=== PATIENT | male | born 1945 | race Caucasian/White ===

== ENCOUNTER → 2017-10-22 09:36 | Outpatient (CLI) | payer MEDICARE, OTHER, SELFPAY ==
[2017-10-22 10:47] LABS: Add Manual Diff / Slide Review NO; Basophils Percent Auto 0.7 % (0-2); Eosinophils Percent Auto 3.3 % (2-4); Hematocrit 40.7 % (41-53); Hemoglobin 13.9 g/dL (13.5-17.5); Lymphocytes Percent Auto 22.8 % (25-40); Mean Corpuscular HGB Conc 34.2 % (30-36); Mean Corpuscular Hemoglobin 29.5 PG (26-34); Mean Corpuscular Volume 86.5 fL (80-100); Monocytes Percent Auto 13.4 % (3-14); Neutrophils Absolute Auto 4200 /uL (3000-5900); Neutrophils Percent Auto 59.8 % (50-75); Platelet Count 198 X10^3/uL (150-400); Red Cell Distribution Width 13.6 % (11.6-14.8)
[2017-10-22 11:39] LABS: Alanine Aminotransferase 28 IU/L (21-72); Albumin 4.1 g/dL (3.5-5.0); Albumin Globulin Ratio 1.5 (1.0-2.8); Alkaline Phosphatase 68 U/L (38-126); Aspartate Aminotransferase 17 IU/L (17-59); Bilirubin Total 0.5 mg/dL (0.2-1.3); Blood Urea Nitrogen 20 mg/dL (9-20); Calcium 9.4 mg/dL (8.4-10.2); Carbon Dioxide 31 mmol/L (22-32); Chloride 100 mmol/L (98-107); Cholesterol 161 mg/dL (140-199); Estimated Glomerular Filt Rate > 60.0 mL/min (>60); Globulin 2.7 g/dL (1.7-4.1); Glucose 103 mg/dL (80-110); HDL Cholesterol 60 mg/dL (40-60); HEMOLYSIS < 15 (0-50); LDL Cholesterol Calculated 85 mg/dL (<100); Potassium 4.4 mmol/L (3.4-5.1); Sodium 139 mmol/L (137-145); Total Protein 6.8 g/dL (6.3-8.2); Triglycerides 82 mg/dL (35-150)
== END ==
PROVIDERS: Family Provider Family Medicine; PCP Family Medicine; Visit Provider Family Medicine
DX: I10 Essential (primary) hypertension (principal); E78.2 Mixed hyperlipidemia; R97.20 Elevated prostate specific antigen [PSA]
CPT/HCPCS: 36415; 80053; 80061; 84153; 85025

== ENCOUNTER → 2019-04-19 09:46 | Outpatient (CLI) | payer MEDICARE, OTHER, SELFPAY ==
[2019-04-19 10:49] LABS: Add Manual Diff / Slide Review NO; Basophils Absolute Auto 0 /uL (0-100); Basophils Percent Auto 0.6 % (0-2); Eosinophils Absolute Auto 200 /uL (0-450); Eosinophils Percent Auto 2.5 % (2-4); Hematocrit 44.1 % (41-53); Hemoglobin 14.8 g/dL (13.5-17.5); Lymphocytes Absolute Auto 1400 /uL (1100-4500); Lymphocytes Percent Auto 19.7 % (25-40); Mean Corpuscular HGB Conc 33.6 % (30-36); Mean Corpuscular Hemoglobin 29.3 PG (26-34); Mean Corpuscular Volume 87.3 fL (80-100); Monocytes Absolute Auto 800 /uL (0-900); Monocytes Percent Auto 11.1 % (3-14); Neutrophils Absolute Auto 4800 /uL (1500-7000); Neutrophils Percent Auto 66.1 % (50-75); Platelet Count 206 X10^3/uL (150-400); Red Blood Cell Count 5.05 X10^6/uL (4.5-5.9); White Blood Cell Count 7.3 X10^3/uL (4.5-11.0)
[2019-04-19 11:02] LABS: Alanine Aminotransferase 21 IU/L (<50); Albumin 4.4 g/dL (3.5-5.0); Albumin Globulin Ratio 1.3 (1.0-2.8); Alkaline Phosphatase 78 U/L (38-126); Aspartate Aminotransferase 21 IU/L (17-59); BUN Creatinine Ratio 26.3 (6-22); Bilirubin Total 0.7 mg/dL (0.2-1.3); Blood Urea Nitrogen 21 mg/dL (9-20); Calcium 9.8 mg/dL (8.4-10.2); Carbon Dioxide 29 mmol/L (22-32); Chloride 98 mmol/L (98-107); Cholesterol 192 mg/dL (140-199); Estimated Glomerular Filt Rate > 60.0 mL/min (>60); Globulin 3.3 g/dL (1.7-4.1); Glucose 107 mg/dL (80-110); HDL Cholesterol 63 mg/dL (40-60); HEMOLYSIS < 15 (0-50); LDL Cholesterol Calculated 101 mg/dL (<100); Potassium 4.8 mmol/L (3.4-5.1); Sodium 136 mmol/L (137-145); Total Protein 7.7 g/dL (6.3-8.2); Triglycerides 142 mg/dL (35-150)
[2019-04-21 16:54] LABS: PSA Free % 14 % (calc) (> 25); PSA, Total 21.4 ng/mL (< 4.1)
== END ==
PROVIDERS: PCP Family Medicine; Visit Provider Family Medicine
DX: R97.20 Elevated prostate specific antigen [PSA] (principal); E78.00 Pure hypercholesterolemia, unspecified; I10 Essential (primary) hypertension
CPT/HCPCS: 36415; 80053; 80061; 84153; 84154; 85025

== ENCOUNTER → 2019-12-27 09:54 | Outpatient (CLI) | payer MEDICARE, OTHER, SELFPAY ==
[2019-12-27 10:59] LABS: Appearance Urine UA CLOUDY; Bilirubin Urine UA NEGATIVE (NEGATIVE); Color Urine UA YELLOW; Glucose Urine UA NEGATIVE (Negative); Ketones Urine UA NEGATIVE (NEGATIVE); Leukocyte Esterase Urine UA 2+ (NEGATIVE); Nitrite Urine UA NEGATIVE (Negative); Occult Blood Urine UA 2+ (Negative); Protein Urine UA 2+ (Negative); Specific Gravity Urine UA 1.015 (1.000-1.035); Urobilinogen Urine UA 0.2 E.U./dL (0.2); pH Urine UA 6.5 (4.5-8.0)
[2019-12-27 11:14] LABS: RBC Urine 5-10/HPF (0-5/HPF); WBC Urine 10-30/HPF (0-5/HPF)
[2019-12-27 11:15] LABS: Bacteria Urine Moderate (10-30); Culture Indicated Urine Specimen Cultured
== END ==
PROVIDERS: PCP Family Medicine; Referring Provider Urology; Visit Provider Urology
DX: R39.9 Unspecified symptoms and signs involving the genitourinary system (principal)
CPT/HCPCS: 81001; 87077; 87086

== ENCOUNTER 2020-01-01 21:38 | Emergency (ER) | payer MEDICARE, OTHER, SELFPAY ==
[2020-01-01 21:51] VITALS: BP 200/104; PULSE 88; RESP 18; TEMP 36.7; O2SAT 99
--- NOTE | 2020-01-01 21:59 | ED.GENADULT ---
HPI - General Adult General Chief complaint: Urogenital-Male Stated complaint: stomach pains, recent UTI Time Seen by Provider: 01/01/20 21:40 Source: patient Mode of arrival: Ambulatory Limitations: no limitations History of Present Illness HPI narrative: Patient is a 74-year-old male. Has known BPH. Is followed by the urologist. Approximately 1 week ago was diagnosed with the urinary tract infection by primary provider. Is placed on Cipro. Has taken this as directed and has 3 tablets left of this antibiotic. He states that the burning that he was having that led to the investigation of a potential urinary tract infection has resolved. He states that over the past 24 hours he has noticed a decreased in the amount of urine that he has been able to produce. He states that he has not been able to empty his bladder over the past 24 hours and really over the past several hours has had urinary urgency and hesitancy and a very small amount of urine output. He is complaining of lower abdominal distention and pain. No vomiting. No fevers. Has never had urinary retention requiring a catheter in the past. Related Data Previous Rx's Medication Instructions Recorded lisinopril-hydrochlorothiazide 1 tab PO QDAY #90 tab 05/21/17 simvastatin 20 mg PO HS #90 tab 05/21/17 cyclobenzaprine 10 mg PO HS #90 tab 07/07/17 hydrocodone 5 mg-acetaminophen 325 1 tab PO .COMPLEX PRN #90 tab 18 mg tablet oxycodone 10 mg tablet,crush 10 mg PO .COMPLEX #90 tab 12/03/17 resistant,extended release 12 hr hydrocodone 5 mg-acetaminophen 325 1 tab PO .COMPLEX PRN #90 tab 12/04/17 mg tablet hydrocodone 5 mg-acetaminophen 325 1 tab PO .COMPLEX PRN #90 tab 12/04/17 mg tablet oxycodone 10 mg tablet,crush 10 mg PO .COMPLEX #90 tab 12/04/17 resistant,extended release 12 hr oxycodone 10 mg tablet,crush 10 mg PO .COMPLEX #90 tab 12/04/17 resistant,extended release 12 hr ciprofloxacin HCl 500 mg tablet 500 mg PO BID 7 Days #14 tab 12/28/19 Allergies Allergy/AdvReac Type Severity Reaction Status Date / Time No Known Drug Allergies Allergy Verified 12/28/19 11:21 Review of Systems Constitutional Constitutional: Denies fatigue and Denies fever(s) Cardiovascular Cardiovascular: Denies chest pain and Denies dyspnea Respiratory Respiratory: Denies dyspnea Gastrointestinal Gastrointestinal: Reports abdominal pain, Denies change in bowel habits, Denies nausea and Denies vomiting Genitourinary Genitourinary: Denies hematuria, Reports oliguria, Reports difficulty urinating, Denies dysuria, Reports urinary frequency, Reports urinary hesitancy, Denies urinary incontinence and Reports urinary urgency Genitourinary: Denies hematuria, Reports urinary frequency, Denies dysuria, Denies urinary incontinence, Reports urinary hesitancy and Reports urinary urgency Musculoskeletal Musculoskeletal: Denies arthralgias and Denies myalgias Integumentary/Breasts Skin/Breast: Denies rash Neurologic Neurologic: Denies behavioral changes and Denies confusion Psychiatric Psychiatric: Denies behavioral changes and Denies confusion Endocrine Endocrine: Denies fatigue Hematologic/Lymphatic Hematologic/Lymphatic: Denies easy bleeding and Denies easy bruising Allergic/Immunologic Allergic/Immunologic: Denies urticaria Patient History Medical History Benign prostatic hyperplasia with lower urinary tract symptoms (11/26/16) Chronic back pain (Chronic 1965) Chronic bilateral low back pain with sciatica (Chronic 09/06/15) Chronic pain of both knees (09/06/15) Chronic pain syndrome (09/06/15) Colon polyps (Resolved 2014) Degeneration of intervertebral disc at L5-S1 level (09/06/15) Elevated prostate specific antigen (PSA) (09/02/16) Elevated PSA (Chronic Unknown) Essential hypertension (04/12/15) Foot pain (Resolved 2014) History of scoliosis (09/06/15) Hyperlipemia (Chronic Unknown) Hypertension (Chronic 1999) Left knee pain (04/12/15) Lumbar disc disease (Chronic ~1959) Midline low back pain without sciatica (04/12/15) Mixed hyperlipidemia (04/12/15) Primary insomnia (04/12/15) Right foot pain (06/22/15) Right knee pain (04/12/15) Uncomplicated opioid dependence (Chronic 09/02/16) Surgical History History of knee replacement (2006) History of knee replacement (2012) History of partial colectomy (Resolved 1980) Status post appendectomy (1980) Family History Father No problems noted. Mother No problems noted. Social History Smoking Status: Former smoker Smoking Status: Former smoker Exam Initial Vital Signs Initial Vital Signs: Vital Signs Temperature 98.1 F 01/01/20 21:51 Pulse Rate 88 01/01/20 21:51 Respiratory Rate 18 01/01/20 21:51 Blood Pressure 200/104 H 01/01/20 21:51 Pulse Oximetry 99 01/01/20 21:51 Const General: cooperative Limitations: mental status not altered HENMT Head: normal to inspection and normocephalic Resp Effort & Inspection: normal respiratory effort Cardio Rate: regular rate GI Inspection: distended Skin Lesions: no lesions Rashes: no rashes Neuro General: patient alert and patient awake Cognition: normal cognition Speech: speech normal Gait: normal gait Extrem General: normal to inspection Psych Appearance: grossly normal and well kempt Course Orders Ordered: ED Orders 01/01/20 22:09 Urinalysis and Microscopic Stat Urine Culture Stat Discontinued Medications Lidocaine HCl (Urojet) 5 ml TOP NOW ONE Stop: 01/01/20 22:12 Last Admin: 01/01/20 22:12 Dose: 5 ml Documented by: SELENE Vital Signs Vital signs: Vital Signs - 8 hr 01/01/20 21:51 Temperature 98.1 F Pulse Rate 88 Respiratory Rate 18 Blood Pressure 200/104 H Pulse Oximetry 99 Medical Decision Making Medical Records Medical records reviewed: Yes I reviewed the patient's medical records. Lab Data Lab results reviewed: Yes I reviewed the patient's lab results. Labs: Lab Results 01/01/20 Range/Units 22:09 Urine Color Yellow Urine Appearance Clear Urine pH 5.0 (4.5-8.0) Ur Specific [place] 1.015 (1.000-1.035) Urine Protein Negative (Negative) Urine Glucose (UA) Negative (Negative) g/dL Urine Ketones Negative (NEGATIVE) Urine Occult Blood Negative (Negative) Urine Nitrate Negative (Negative) Urine Bilirubin Negative (NEGATIVE) Urine Urobilinogen 0.2 (0.2) E.U./dL Ur Leukocyte Esterase Negative (NEGATIVE) Urine RBC None seen (0-5/HPF) Urine WBC 0-1/hpf (0-5/HPF) Urine Bacteria None seen (None) Ur Culture Indicated? Culture not indicate MDM Narrative Medical decision making narrative: Patient is currently being treated for urinary tract infection and has only a few pills left. His urinalysis today is not consistent with a UTI. Initial bladder scan showed 400 cc however when a Alatorre catheter was placed had a results of approximately 1300 cc of urine. Patient felt much better after this. I suspect that the urinary retention is secondary to his infection and also underlying prostate issues. Had a long discussion with the patient regarding the symptoms. We did discuss the options to include leaving the Alatorre catheter in of the risks and benefits this and also removing the Alatorre catheter and the risks and benefits of this as well. We did discuss that if remove the catheter there is a fairly high chance that he would retain urine again and that he would have to return to the emergency department to have another catheter placed. I did inform him that if the catheter was left in place he should contact his primary provider or urologist for a follow-up to have it removed. After this discussion the patient opted to have the catheter removed. He understood the risks and benefits of this and the potential outcomes. This discussion with had with his at bedside. Acute Alatorre catheter was removed. He was given return precautions and due to avoid instructions. Will have him continue his antibiotics. Informed him that he should contact his urologist tomorrow regardless of the ability or not to urinate for follow-up. He expressed understanding and agreement. Discharge Plan Departure Patient Disposition: Home Clinical Impression: Acute urinary retention, Urinary tract infection, BPH (benign prostatic hyperplasia) Instructions: DI for Urinary Retention in Men Activity Restrictions/Additional Instructions: After discussion you did opt to have the urinary catheter removed. You should be urinating at your baseline by morning like we discussed. If you start to have increasing pain or inability to urinate please return to the emergency department for further evaluation. I also recommend that tomorrow you contact your urologist office for a follow-up. Prescriptions: No Action ciprofloxacin HCl 500 mg tablet 500 mg PO BID 7 Days Qty: 14 RF: 0 hydrocodone-acetaminophen 5-325 mg tablet 1 tab PO .COMPLEX PRN (Reason: pain) Qty: 90 RF: 0 oxycodone [OxyContin] 10 mg tablet,oral only,ext.rel.12 hr 10 mg PO .COMPLEX Qty: 90 RF: 0 hydrocodone-acetaminophen 5-325 mg tablet 1 tab PO .COMPLEX PRN (Reason: pain) Qty: 90 RF: 0 hydrocodone-acetaminophen 5-325 mg tablet 1 tab PO .COMPLEX PRN (Reason: pain) Qty: 90 RF: 0 oxycodone [OxyContin] 10 mg tablet,oral only,ext.rel.12 hr 10 mg PO .COMPLEX Qty: 90 RF: 0 oxycodone [OxyContin] 10 mg tablet,oral only,ext.rel.12 hr 10 mg PO .COMPLEX Qty: 90 RF: 0 simvastatin 20 MG tablet 20 mg PO HS Qty: 90 RF: 3 lisinopril-hydrochlorothiazide 10 MG/12.5 MG tablet 1 tab PO QDAY Qty: 90 RF: 3 cyclobenzaprine 10 MG tablet 10 mg PO HS Qty: 90 RF: 3 Referrals: Luiz Kaur MD [Primary Care Provider] -
--- NOTE | 2020-01-01 22:00 | PC.NURSE ---
Patient reports diagnosed with UTI and started on ABX 3 days ago. Today had new abdominal pain and inability to urinate. States I can only get out a few drops. Denies N/V and reports improvement in UTI symptoms since starting ABX.
[2020-01-01] MEDS: LIDOCAINE 2% (UROJET) 5 ML GEL TOP (22:12)
[2020-01-01 22:35] LABS: Bacteria Urine None Seen; RBC Urine None Seen (0-5/HPF)
[2020-01-01 22:43] LABS: Appearance Urine UA CLEAR; Bilirubin Urine UA NEGATIVE (NEGATIVE); Color Urine UA YELLOW; Glucose Urine UA NEGATIVE (Negative); Ketones Urine UA NEGATIVE (NEGATIVE); Leukocyte Esterase Urine UA NEGATIVE (NEGATIVE); Nitrite Urine UA NEGATIVE (Negative); Occult Blood Urine UA NEGATIVE (Negative); Protein Urine UA NEGATIVE (Negative); Specific Gravity Urine UA 1.015 (1.000-1.035); Urobilinogen Urine UA 0.2 E.U./dL (0.2)
[2020-01-01 22:53] LABS: WBC Urine 0-1/HPF (0-5/HPF)
[2020-01-01 23:24] VITALS: BP 153/89; PULSE 83; RESP 18; O2SAT 98
== END 2020-01-01 23:25 | disposition home or self-care (01) ==
PROVIDERS: Emergency Provider Emergency Medicine; PCP Family Medicine
DX: N40.1 Benign prostatic hyperplasia with lower urinary tract symptoms (principal); R33.8 Other retention of urine; N39.0 Urinary tract infection, site not specified
CPT/HCPCS: 51701; 51798; 81001; 87086; 99283

== ENCOUNTER 2020-01-03 09:29 | Emergency (ER) | payer MEDICARE, OTHER, SELFPAY ==
[2020-01-03 09:42] VITALS: BP 188/91; PULSE 95; RESP 18; TEMP 35.7; O2SAT 97
[2020-01-03] MEDS: LIDOCAINE 2% (UROJET) 5 ML GEL TOP (09:52)
[2020-01-03 10:10] LABS: Bacteria Urine None Seen
[2020-01-03 10:11] LABS: Appearance Urine UA SL CLOUDY; Bilirubin Urine UA NEGATIVE (NEGATIVE); Color Urine UA YELLOW; Glucose Urine UA NEGATIVE (Negative); Ketones Urine UA NEGATIVE (NEGATIVE); Leukocyte Esterase Urine UA NEGATIVE (NEGATIVE); Nitrite Urine UA NEGATIVE (Negative); Occult Blood Urine UA 3+ (Negative); Protein Urine UA NEGATIVE (Negative); Urobilinogen Urine UA 0.2 E.U./dL (0.2); pH Urine UA 5.5 (4.5-8.0)
--- NOTE | 2020-01-03 10:27 | ED_ITS ---
HPI - Male Genitourinary General Chief complaint: Urogenital-Male Stated complaint: urinary thing Time Seen by Provider: 01/03/20 10:11 Source: patient Mode of arrival: Ambulatory Limitations: no limitations History of Present Illness HPI Narrative: The patient was seen 2 days ago with urinary retention. Alatorre was placed, his distention is relieved. He requests the Alatorre be removed prior to discharge. He initially did well leaving the ER, but developed dripping yesterday, and then loss of urine output this morning. He comes in lower abdominal discomfort and inability urinate. He has no nausea vomiting. He has no fever chills. His a prior history of BPH. His medications was not listed, but he iis apparently taking Alfuzosin for the past year. He was previously on Flomax, without benefit. He was seen 1 week ago and walk-in clinic and put on Cipro for a UTI. He has no testicular pain, and no dysuria at this time. He has no fever. Related Data Previous Rx's Medication Instructions Recorded lisinopril-hydrochlorothiazide 1 tab PO QDAY #90 tab 05/21/17 simvastatin 20 mg PO HS #90 tab 05/21/17 ciprofloxacin HCl [Cipro] 500 mg PO Q12H #28 tab 01/03/20 Allergies Allergy/AdvReac Type Severity Reaction Status Date / Time No Known Drug Allergies Allergy Verified 12/28/19 11:21 Review of Systems Constitutional Constitutional: Denies chills, Denies fever(s) and Denies weakness ENT Ears, Nose, Mouth, and Throat: Denies sore throat Cardiovascular Cardiovascular: Denies dyspnea Respiratory Respiratory: Denies cough and Denies dyspnea Gastrointestinal Comments: Suprapubic abdominal pain. No nausea vomiting. Genitourinary Comments: No genital pain. Musculoskeletal Comments: No back pain. Integumentary/Breasts Skin/Breast: Denies rash Neurologic Neurologic: Denies weakness Patient History Medical History Benign prostatic hyperplasia with lower urinary tract symptoms (11/26/16) Chronic back pain (Chronic 1964) Chronic bilateral low back pain with sciatica (Chronic 09/06/15) Chronic pain of both knees (09/06/15) Chronic pain syndrome (09/06/15) Colon polyps (Resolved 2014) Degeneration of intervertebral disc at L5-S1 level (09/06/15) Elevated prostate specific antigen (PSA) (09/02/16) Elevated PSA (Chronic Unknown) Essential hypertension (04/12/15) Foot pain (Resolved 2014) History of scoliosis (09/06/15) Hyperlipemia (Chronic Unknown) Hypertension (Chronic 1999) Left knee pain (04/12/15) Lumbar disc disease (Chronic ~1960) Midline low back pain without sciatica (04/12/15) Mixed hyperlipidemia (04/12/15) Primary insomnia (04/12/15) Right foot pain (06/22/15) Right knee pain (04/12/15) Uncomplicated opioid dependence (Chronic 09/02/16) Surgical History History of knee replacement (2006) History of knee replacement (2012) History of partial colectomy (Resolved 1980) Status post appendectomy (1980) Family History Father No problems noted. Mother No problems noted. Social History Smoking Status: Former smoker Smoking Status: Former smoker alcohol intake frequency: 0-2 drinks per day Substance Use Type: does not use Exam Initial Vital Signs Initial Vital Signs: Vital Signs Temperature 96.2 F L 01/03/20 09:42 Pulse Rate 95 H 01/03/20 09:42 Respiratory Rate 18 01/03/20 09:42 Blood Pressure 188/91 H 01/03/20 09:42 Pulse Oximetry 97 01/03/20 09:42 GI Inspection: non-distended Palpation: soft, No guarding, No pulsatile mass and No tender Auscultation: normal bowel sounds Other: (The Alatorre was placed prior to my physical exam.) Penis: normal penis Meatus: meatus normal Scrotum: scrotum normal Testes: normal Back/Spine/Pelvis Back: No CVA tenderness Skin General: no rashes or lesions noted Course Course Course Narrative: The patient eventually drain 1400 mL of urine out with the Alatorre in place. He has had for leg bag. I discussed the situation with Urology, Dr. Bowman. Dr. Bowman has agreed to see him within the coming week. Orders Ordered: Discontinued Medications Lidocaine HCl (Urojet) 5 ml TOP NOW ONE Stop: 01/03/20 09:44 Last Admin: 01/03/20 09:52 Dose: 5 ml Documented by: JACI Tamsulosin HCl (Flomax) 0.4 mg PO NOW ONE Stop: 01/03/20 10:31 Last Admin: 01/03/20 10:42 Dose: Not Given Documented by: JACI Vital Signs Vital signs: Vital Signs - 8 hr 01/03/20 09:42 Temperature 96.2 F L Pulse Rate 95 H Respiratory Rate 18 Blood Pressure 188/91 H Pulse Oximetry 97 MDM - Male Genitourinary Lab Data Labs: Lab Results 01/03/20 Range/Units 10:05 Urine Color Yellow Urine Appearance Sl cloudy Urine pH 5.5 (4.5-8.0) Ur Specific [place] 1.020 (1.000-1.035) Urine Protein Negative (Negative) Urine Glucose (UA) Negative (Negative) g/dL Urine Ketones Negative (NEGATIVE) Urine Occult Blood 3+ H (Negative) Urine Nitrate Negative (Negative) Urine Bilirubin Negative (NEGATIVE) Urine Urobilinogen 0.2 (0.2) E.U./dL Ur Leukocyte Esterase Negative (NEGATIVE) Urine RBC 30-100/hpf H (0-5/HPF) Urine WBC 0-1/hpf (0-5/HPF) Urine Bacteria None seen (None) Ur Culture Indicated? Cult not indicated Discharge Plan Departure Patient Disposition: Home Clinical Impression: Acute urinary retention, Acute prostatitis Benign prostatic hyperplasia Qualifiers: Lower urinary tract symptom presence: symptoms present Lower urinary tract symptom detail: urinary retention Qualified Code(s): N40.1 - Benign prostatic hyperplasia with lower urinary tract symptoms Discharge Date/Time: 01/03/20 11:55 Instructions: DI for Urinary Retention in Men Activity Restrictions/Additional Instructions: Continue your prostate medication,Alfuzosib. Continue Cipro 2 times daily for 2 weeks. The prescription has been electronically forwarded to [facility]. Drink plenty of water. Follow-up with urology, I will give you contact information for Dr. Bowman. Call for an appointment. The Alatorre should stay in until seen by Urology. Return to the ER as needed. Prescriptions: New ciprofloxacin HCl [Cipro] 500 mg tablet 500 mg PO Q12H Qty: 28 RF: 0 No Action simvastatin 20 MG tablet 20 mg PO HS Qty: 90 RF: 3 lisinopril-hydrochlorothiazide 10 MG/12.5 MG tablet 1 tab PO QDAY Qty: 90 RF: 3 Referrals: Andreas Bowman MD [Physician] - Luiz Kaur MD [Primary Care Provider] -
[2020-01-03 11:04] LABS: RBC Urine 30-100/HPF (0-5/HPF)
[2020-01-03 11:05] LABS: Culture Indicated Urine Cult Not Indicated; WBC Urine 0-1/HPF (0-5/HPF)
--- NOTE | 2020-01-03 11:32 | PC.NURSE ---
patient switched to leg bag for dispo and educated on care and maintenance at home
[2020-01-03 11:36] VITALS: BP 150/84; PULSE 82; RESP 18; O2SAT 96
[2020-01-03 11:54] VITALS: BP 141/77; PULSE 78; RESP 16; O2SAT 98
== END 2020-01-03 11:55 | disposition home or self-care (01) ==
PROVIDERS: Emergency Provider Emergency Medicine; PCP Family Medicine
DX: N41.0 Acute prostatitis (principal)
CPT/HCPCS: 51798; 81001; 99283

== ENCOUNTER 2020-01-26 23:47 | Emergency (ER) | payer MEDICARE, OTHER, SELFPAY ==
[2020-01-26 23:54] VITALS: BP 205/104; PULSE 92; RESP 16; TEMP 36.4; O2SAT 98; BMI 27.7
--- NOTE | 2020-01-26 23:59 | ED_ITS ---
HPI - Male Genitourinary General Chief complaint: Urogenital-Male Stated complaint: had catheter out, system isn't working Time Seen by Provider: 01/26/20 23:48 Source: patient Mode of arrival: Ambulatory Limitations: no limitations History of Present Illness HPI Narrative: 74-year-old male former smoker with history of enlarged prostate and recent episode of urinary retention with Alatorre catheter placement returns to the emergency department with an inability urinate and a chief complaint of suprapubic tenderness. He is not dizzy nor weak or lightheaded. He denies any chest pain or shortness of breath. He has had no fever or chills. He states that he was at his urologist office today and had a catheter removed and has since been unable to urinate. MD Complaint: other Onset (ago): hour(s) Duration: constant Severity: moderate Quality: aching Relieving factors: none Exacerbating factors: none Associated symptoms: Reports denies other symptoms Related Data Home Medications Medication Instructions Recorded Confirmed aspirin 81 mg tablet,delayed 81 mg PO DAILY 01/26/20 01/26/20 release oxycodone 10 mg tablet 10 mg PO BID PRN 01/26/20 01/26/20 Previous Rx's Medication Instructions Recorded lisinopril-hydrochlorothiazide 1 tab PO QDAY #90 tab 05/21/17 simvastatin 20 mg PO HS #90 tab 05/21/17 ciprofloxacin HCl [Cipro] 500 mg PO Q12H #28 tab 01/03/20 ciprofloxacin HCl 250 mg tablet 250 mg PO BID #6 tab 01/04/20 tamsulosin 0.4 mg capsule 0.4 mg PO .B.i.d. #180 cap 01/26/20 Allergies Allergy/AdvReac Type Severity Reaction Status Date / Time No Known Drug Allergies Allergy Verified 01/26/20 10:55 Review of Systems Constitutional Constitutional: Denies chills, Denies fatigue, Denies fever(s), Denies frequent falls, Denies lethargy and Denies weakness Eyes Eyes: Denies change in vision, Denies eye discharge, Denies irritation and Denies loss of vision ENT Ears, Nose, Mouth, and Throat: Denies change in voice, Denies dizziness, Denies neck pain, Denies sore throat and Denies throat swelling Cardiovascular Cardiovascular: Denies chest pain, Denies irregular heart rhythm, Denies lightheadedness, Denies palpitations, Denies dyspnea, Denies dyspnea on exertion and Denies orthopnea Respiratory Respiratory: Denies cough, Denies dyspnea, Denies dyspnea on exertion and Denies wheezing Gastrointestinal Gastrointestinal: Reports abdominal pain, Denies change in bowel habits, Denies diarrhea, Denies nausea and Denies vomiting Genitourinary Genitourinary: Reports urinary frequency Genitourinary: Reports urinary frequency and Reports difficulty voiding Musculoskeletal Musculoskeletal: Denies neck pain and Denies numbness Integumentary/Breasts Skin/Breast: Denies pruritus, Denies erythema, Denies rash and Denies wounds Neurologic Neurologic: Denies behavioral changes, Denies confusion, Denies dizziness, Denies frequent falls, Denies loss of vision, Denies numbness and Denies weakness Psychiatric Psychiatric: Denies anxiety, Denies behavioral changes, Denies confusion, Denies depression, Denies homicidal ideation and Denies suicidal ideation Endocrine Endocrine: Denies fatigue, Denies flushing and Denies palpitations Hematologic/Lymphatic Hematologic/Lymphatic: Denies easy bruising Allergic/Immunologic Allergic/Immunologic: Denies urticaria, Denies throat swelling and Denies wheezing Patient History Medical History Benign prostatic hyperplasia with lower urinary tract symptoms (11/26/16) BPH w urinary obs/LUTS (Acute) Chronic back pain (Chronic 1964) Chronic bilateral low back pain with sciatica (Chronic 09/06/15) Chronic pain of both knees (09/06/15) Chronic pain syndrome (09/06/15) Colon polyps (Resolved 2014) Degeneration of intervertebral disc at L5-S1 level (09/06/15) Elevated prostate specific antigen (PSA) (09/02/16) Elevated PSA (Chronic Unknown) Elevated PSA (Acute) Erectile dysfunction (Acute) Essential hypertension (04/12/15) Foot pain (Resolved 2014) History of scoliosis (09/06/15) History of UTI (Acute) Hyperlipemia (Chronic Unknown) Hypertension (Chronic 1999) Left knee pain (04/12/15) Lumbar disc disease (Chronic ~1960) Midline low back pain without sciatica (04/12/15) Mixed hyperlipidemia (04/12/15) Primary insomnia (04/12/15) Right foot pain (06/22/15) Right knee pain (04/12/15) Uncomplicated opioid dependence (Chronic 09/02/16) Urinary retention (Acute) Surgical History History of knee replacement (2006) History of knee replacement (2012) History of partial colectomy (Resolved 1980) Status post appendectomy (1980) Family History Father No problems noted. Mother No problems noted. Social History Smoking Status: Former smoker Smoking Status: Former smoker alcohol intake frequency: 0-2 drinks per day Substance Use Type: does not use Exam Narrative Exam Narrative: GEN: AOx3 and in mild distress EYES: Pupils are equal, round, and reactive to light and accommodation. Extraoccular muscles are intact bilaterally. There is no subconjunctival hemorrhage or exudate. CHEST: Lungs are clear to auscultation bilaterally and free of wheezes, rales, or rhonchi. Heart rate is regular rhythm, there are no murmurs, clicks, rubs, or gallops. There is no chest wall tenderness. ABD: Abdomen is soft and tender in the suprapubic region. There is no guarding or rebound. Bowel sounds are normal in all 4 quadrants. There is no mass or organomegaly. EXT: Full painless ROM of all extremities with no loss of sensation or strength. SKIN: Warm, pink, and dry. No erythema or rash Initial Vital Signs Initial Vital Signs: Vital Signs Temperature 97.6 F 01/26/20 23:54 Pulse Rate 92 H 01/26/20 23:54 Respiratory Rate 16 01/26/20 23:54 Blood Pressure 205/104 H 01/26/20 23:54 Pulse Oximetry 98 01/26/20 23:54 Course Course Course Narrative: nursing performs bladder scan noting >500mL. Alatorre placed and patient reports complete resolution of symptoms Orders Ordered: ED Orders 01/27/20 00:22 Urinalysis and Microscopic Stat Discontinued Medications Lidocaine HCl (Urojet) 5 ml TOP NOW ONE Stop: 01/26/20 23:55 Last Admin: 01/27/20 00:04 Dose: 5 ml Documented by: JACI Vital Signs Vital signs: Vital Signs - 8 hr 01/26/20 23:54 01/27/20 01:20 Temperature 97.6 F Pulse Rate 92 H 80 Respiratory Rate 16 12 Blood Pressure 205/104 H 159/77 H Pulse Oximetry 98 98 MDM - Male Genitourinary Lab Data Labs: Lab Results 01/27/20 Range/Units 00:22 Urine Color Yellow Urine Appearance Clear Urine pH 5.0 (4.5-8.0) Ur Specific [place] 1.015 (1.000-1.035) Urine Protein Negative (Negative) Urine Glucose (UA) Negative (Negative) g/dL Urine Ketones Negative (NEGATIVE) Urine Occult Blood 1+ H (Negative) Urine Nitrate Negative (Negative) Urine Bilirubin Negative (NEGATIVE) Urine Urobilinogen 0.2 (0.2) E.U./dL Ur Leukocyte Esterase Negative (NEGATIVE) Urine RBC 0-1/hpf D (0-5/HPF) Urine WBC None seen (0-5/HPF) Urine Bacteria None seen (None) Ur Culture Indicated? Cult not indicated Discharge Plan Departure Patient Disposition: Home Clinical Impression: Acute retention of urine Discharge Date/Time: 01/27/20 01:20 Instructions: DI for Urinary Retention in Men Activity Restrictions/Additional Instructions: *You have been diagnosed with [acute urinary retention] *What to do: * continue to take medications as directed *Follow up with your Urologist, call tomorrow morening for an appointment. Let them know you were seen in the Emergency Department and that we ask that you be seen in follow up *Return to ER if you should have any new, worsening or concerning symptoms Prescriptions: No Action simvastatin 20 MG tablet 20 mg PO HS Qty: 90 RF: 3 lisinopril-hydrochlorothiazide 10 MG/12.5 MG tablet 1 tab PO QDAY Qty: 90 RF: 3 ciprofloxacin HCl [Cipro] 250 mg tablet 250 mg PO BID Qty: 6 RF: 0 ciprofloxacin HCl [Cipro] 500 mg tablet 500 mg PO Q12H Qty: 28 RF: 0 aspirin [Adult Aspirin Regimen] 81 mg tablet,delayed release (DR/EC) 81 mg PO DAILY RF: 0 oxycodone 10 mg tablet 10 mg PO BID PRNRF: 0 tamsulosin 0.4 mg capsule 0.4 mg PO .B.i.d. Qty: 180 RF: 3 Referrals: Andreas Bowman MD [Physician] - Luiz Kaur MD [Primary Care Provider] -
[2020-01-27] MEDS: LIDOCAINE 2% (UROJET) 5 ML GEL TOP (00:04)
--- NOTE | 2020-01-27 00:05 | PC.NURSE ---
had trevizo removed around 11am, unable to empty bladder since.
[2020-01-27 00:23] LABS: Bacteria Urine None Seen; WBC Urine None Seen (0-5/HPF)
[2020-01-27 00:46] LABS: Appearance Urine UA CLEAR; Bilirubin Urine UA NEGATIVE (NEGATIVE); Color Urine UA YELLOW; Glucose Urine UA NEGATIVE (Negative); Ketones Urine UA NEGATIVE (NEGATIVE); Leukocyte Esterase Urine UA NEGATIVE (NEGATIVE); Nitrite Urine UA NEGATIVE (Negative); Occult Blood Urine UA 1+ (Negative); Protein Urine UA NEGATIVE (Negative); Specific Gravity Urine UA 1.015 (1.000-1.035); Urobilinogen Urine UA 0.2 E.U./dL (0.2)
[2020-01-27 01:07] LABS: RBC Urine 0-1/HPF (0-5/HPF)
[2020-01-27 01:08] LABS: Culture Indicated Urine Cult Not Indicated
[2020-01-27 01:20] VITALS: BP 159/77; PULSE 80; RESP 12; O2SAT 98
== END 2020-01-27 01:20 | disposition home or self-care (01) ==
PROVIDERS: Emergency Provider Emergency Medicine; PCP Family Medicine
DX: N40.1 Benign prostatic hyperplasia with lower urinary tract symptoms (principal); R33.8 Other retention of urine; R10.9 Unspecified abdominal pain; N13.8 Other obstructive and reflux uropathy; R97.20 Elevated prostate specific antigen [PSA]; N52.9 Male erectile dysfunction, unspecified; Z87.440 Personal history of urinary (tract) infections
CPT/HCPCS: 51798; 81001; 99215; 99283

== ENCOUNTER 2020-02-10 01:52 | Emergency (ER) | payer MEDICARE, OTHER, SELFPAY ==
--- NOTE | 2020-02-10 01:55 | ED.MALEGU ---
HPI - Male Genitourinary General Chief complaint: Urogenital-Male Stated complaint: problems urinating Time Seen by Provider: 02/10/20 01:55 Source: patient Mode of arrival: Ambulatory Limitations: no limitations History of Present Illness HPI Narrative: 74-year-old male with history of hypertension, hyperlipidemia, enlarged prostate and recent bouts of urinary retention presents with a chief complaint of inability to urinate and suprapubic tenderness. He had been recently seen here in the ED and had a trevizo catheter placed. He had close follow up with local urology ([facility]) and 2 days ago had his catheter removed and plan to self cath until what sounds like a cystoscopy in April. Patient was unsuccessful cathing at home and presents here for help. He has had no fever or chills nor back pain. He did have a small amount of blood after attempt at self catheterization but states it was minimal and resolved quickly. MD Complaint: other Onset (ago): hour(s) Duration: constant Location: abdomen Severity: moderate Quality: aching Exacerbating factors: none Context: indwelling catheter Associated symptoms: Reports urinary retention and blood in urine Related Data Home Medications Medication Instructions Recorded Confirmed aspirin 81 mg tablet,delayed 81 mg PO DAILY 01/26/20 01/26/20 release oxycodone 10 mg tablet 10 mg PO BID PRN 01/26/20 01/26/20 Previous Rx's Medication Instructions Recorded lisinopril-hydrochlorothiazide 1 tab PO QDAY #90 tab 05/21/17 simvastatin 20 mg PO HS #90 tab 05/21/17 tamsulosin 0.4 mg capsule 0.4 mg PO .B.i.d. #180 cap 01/26/20 ciprofloxacin HCl 250 mg tablet 250 mg PO BID #6 tab 01/30/20 Allergies Allergy/AdvReac Type Severity Reaction Status Date / Time No Known Drug Allergies Allergy Verified 02/10/20 02:03 Review of Systems Constitutional Constitutional: Denies chills, Denies fatigue, Denies fever(s), Denies frequent falls, Denies lethargy and Denies weakness Eyes Eyes: Denies change in vision, Denies eye discharge, Denies irritation and Denies loss of vision ENT Ears, Nose, Mouth, and Throat: Denies change in voice, Denies dizziness, Denies neck pain, Denies sore throat and Denies throat swelling Cardiovascular Cardiovascular: Denies chest pain, Denies irregular heart rhythm, Denies lightheadedness, Denies palpitations, Denies dyspnea, Denies dyspnea on exertion and Denies orthopnea Respiratory Respiratory: Denies cough, Denies dyspnea, Denies dyspnea on exertion and Denies wheezing Gastrointestinal Gastrointestinal: Denies abdominal pain, Denies change in bowel habits, Denies diarrhea, Denies nausea and Denies vomiting Genitourinary Genitourinary: Reports hematuria and Reports oliguria Genitourinary: Reports hematuria Musculoskeletal Musculoskeletal: Denies neck pain and Denies numbness Integumentary/Breasts Skin/Breast: Denies pruritus, Denies erythema, Denies rash and Denies wounds Neurologic Neurologic: Denies behavioral changes, Denies confusion, Denies dizziness, Denies frequent falls, Denies loss of vision, Denies numbness and Denies weakness Psychiatric Psychiatric: Denies anxiety, Denies behavioral changes, Denies confusion, Denies depression, Denies homicidal ideation and Denies suicidal ideation Endocrine Endocrine: Denies fatigue, Denies flushing and Denies palpitations Hematologic/Lymphatic Hematologic/Lymphatic: Denies easy bruising Allergic/Immunologic Allergic/Immunologic: Denies urticaria, Denies throat swelling and Denies wheezing Patient History Medical History Benign prostatic hyperplasia with lower urinary tract symptoms (11/26/16) BPH w urinary obs/LUTS (Acute) Chronic back pain (Chronic 1964) Chronic bilateral low back pain with sciatica (Chronic 09/06/15) Chronic pain of both knees (09/06/15) Chronic pain syndrome (09/06/15) Colon polyps (Resolved 2014) Degeneration of intervertebral disc at L5-S1 level (09/06/15) Elevated prostate specific antigen (PSA) (09/02/16) Elevated PSA (Chronic Unknown) Elevated PSA (Acute) Erectile dysfunction (Acute) Essential hypertension (04/12/15) Foot pain (Resolved 2014) History of scoliosis (09/06/15) History of UTI (Acute) Hyperlipemia (Chronic Unknown) Hypertension (Chronic 1999) Left knee pain (04/12/15) Lumbar disc disease (Chronic ~1959) Midline low back pain without sciatica (04/12/15) Mixed hyperlipidemia (04/12/15) Primary insomnia (04/12/15) Right foot pain (06/22/15) Right knee pain (04/12/15) Uncomplicated opioid dependence (Chronic 09/02/16) Urinary retention (Acute) Surgical History History of knee replacement (2006) History of knee replacement (2012) History of partial colectomy (Resolved 1980) Status post appendectomy (1980) Family History Father No problems noted. Mother No problems noted. Social History Smoking Status: Former smoker Smoking Status: Former smoker alcohol intake frequency: 0-2 drinks per day Substance Use Type: does not use Exam Narrative Exam Narrative: GEN: AOx3 and in mild distress EYES: Pupils are equal, round, and reactive to light and accommodation. Extraoccular muscles are intact bilaterally. There is no subconjunctival hemorrhage or exudate. CHEST: Lungs are clear to auscultation bilaterally and free of wheezes, rales, or rhonchi. Heart rate is regular rhythm, there are no murmurs, clicks, rubs, or gallops. There is no chest wall tenderness. ABD: Abdomen is soft and nontender. There is no guarding or rebound. Bowel sounds are normal in all 4 quadrants. There is no mass or organomegaly. EXT: Full painless ROM of all extremities with no loss of sensation or strength. SKIN: Warm, pink, and dry. No erythema or rash Initial Vital Signs Initial Vital Signs: Vital Signs Temperature 98.3 F 02/10/20 02:03 Pulse Rate 90 02/10/20 02:03 Respiratory Rate 18 02/10/20 02:03 Blood Pressure 233/105 H 02/10/20 02:03 Pulse Oximetry 98 02/10/20 02:03 Course Course Course Narrative: bedside bladder scan notes nearly 700mL, nursing easily places trevizo catheter and patient symptoms greatly improved. Vital Signs Vital signs: Vital Signs - 8 hr 02/10/20 02:03 Temperature 98.3 F Pulse Rate 90 Respiratory Rate 18 Blood Pressure 233/105 H Pulse Oximetry 98 MDM - Male Genitourinary MDM Narrative Medical decision making narrative: patient mentions he has an appointment with Dr. Bowman in April, however due to a prior relationship with Dr. eHnry at [facility] he plans to follow up with her later in the day. He is given return precautions and has had his questions answered to his apparent satisfaction Discharge Plan Departure Patient Disposition: Home Clinical Impression: Urinary retention Discharge Date/Time: 02/10/20 02:38 Instructions: DI for Urinary Retention in Men Activity Restrictions/Additional Instructions: *You have been diagnosed with [acute common recurrent urinary retention] *What to do: * continue to take medications as directed *Follow up with your urology provider later today as previously planned *Return to ER if you should have any new, worsening or concerning symptoms, such as [fever greater than 101, shaking chills, catheter problems or other bothersome symptoms] Prescriptions: No Action simvastatin 20 MG tablet 20 mg PO HS Qty: 90 RF: 3 lisinopril-hydrochlorothiazide 10 MG/12.5 MG tablet 1 tab PO QDAY Qty: 90 RF: 3 ciprofloxacin HCl [Cipro] 250 mg tablet 250 mg PO BID Qty: 6 RF: 0 aspirin [Adult Aspirin Regimen] 81 mg tablet,delayed release (DR/EC) 81 mg PO DAILY RF: 0 oxycodone 10 mg tablet 10 mg PO BID PRNRF: 0 tamsulosin 0.4 mg capsule 0.4 mg PO .B.i.d. Qty: 180 RF: 3 Referrals: Angeles Henry MD [Non-Staff] - Andreas Bowman MD [Physician] - Luiz Kaur MD [Primary Care Provider] -
[2020-02-10 02:03] VITALS: BP 233/105; PULSE 90; RESP 18; TEMP 36.8; O2SAT 98; BMI 27.7
--- NOTE | 2020-02-10 02:24 | PC.NURSE ---
Pt had over 600 ml of retained urine upon bladder scanning. Alatorre placed. Few small blood clots noted in catheter
[2020-02-10 02:25] VITALS: BP 158/85; PULSE 82; RESP 16; O2SAT 98
== END 2020-02-10 02:38 | disposition home or self-care (01) ==
PROVIDERS: Emergency Provider Emergency Medicine; PCP Family Medicine
DX: R33.8 Other retention of urine (principal); R31.9 Hematuria, unspecified; N40.0 Benign prostatic hyperplasia without lower urinary tract symptoms; I10 Essential (primary) hypertension; E78.5 Hyperlipidemia, unspecified
CPT/HCPCS: 51701; 51798; 99283

== ENCOUNTER → 2020-08-24 07:44 | Outpatient (CLI) | payer MEDICARE, OTHER, SELFPAY ==
[2020-08-24 08:16] LABS: Add Manual Diff / Slide Review NO; Basophils Absolute Auto 100 /uL (0-100); Basophils Percent Auto 0.8 % (0-2); Eosinophils Absolute Auto 200 /uL (0-450); Eosinophils Percent Auto 2.3 % (2-4); Hematocrit 41.7 % (41-53); Hemoglobin 13.8 g/dL (13.5-17.5); Lymphocytes Absolute Auto 1300 /uL (1100-4500); Lymphocytes Percent Auto 18.7 % (25-40); Mean Corpuscular HGB Conc 33.1 % (30-36); Mean Corpuscular Hemoglobin 28.7 PG (26-34); Mean Corpuscular Volume 86.5 fL (80-100); Monocytes Absolute Auto 700 /uL (0-900); Monocytes Percent Auto 10.4 % (3-14); Neutrophils Absolute Auto 4600 /uL (1500-7000); Neutrophils Percent Auto 67.8 % (50-75); Platelet Count 230 X10^3/uL (150-400); Red Blood Cell Count 4.82 X10^6/uL (4.5-5.9); Red Cell Distribution Width 13.5 % (11.6-14.8); White Blood Cell Count 6.7 X10^3/uL (4.5-11.0)
[2020-08-24 08:36] LABS: Alanine Aminotransferase 25 IU/L (<50); Albumin 4.2 g/dL (3.5-5.0); Albumin Globulin Ratio 1.4 (1.0-2.8); Alkaline Phosphatase 83 U/L (38-126); Aspartate Aminotransferase 28 IU/L (17-59); BUN Creatinine Ratio 25.7 (6-22); Bilirubin Total 0.6 mg/dL (0.2-1.3); Blood Urea Nitrogen 19 mg/dL (9-20); Calcium 9.8 mg/dL (8.4-10.2); Carbon Dioxide 27 mmol/L (22-32); Chloride 103 mmol/L (98-107); Cholesterol 179 mg/dL (140-199); Estimated Glomerular Filt Rate > 60.0 mL/min (>60); Globulin 2.9 g/dL (1.7-4.1); Glucose 116 mg/dL (80-110); HDL Cholesterol 78 mg/dL (40-60); HEMOLYSIS < 15 (0-50); LDL Cholesterol Calculated 86 mg/dL (<100); Potassium 4.3 mmol/L (3.4-5.1); Sodium 136 mmol/L (137-145); Total Protein 7.1 g/dL (6.3-8.2); Triglycerides 76 mg/dL (35-150)
== END ==
PROVIDERS: PCP Family Medicine; Referring Provider Family Medicine; Visit Provider Family Medicine
DX: I10 Essential (primary) hypertension (principal)
CPT/HCPCS: 36415; 80053; 80061; 85025

== ENCOUNTER → 2022-06-14 08:26 | Outpatient (CLI) | payer MEDICARE, OTHER, SELFPAY ==
[2022-06-14 09:28] LABS: Add Manual Diff / Slide Review NO; Basophils Absolute Auto 0 /uL (0-100); Basophils Percent Auto 0.6 % (0-2); Eosinophils Absolute Auto 200 /uL (0-450); Eosinophils Percent Auto 2.9 % (2-4); Hematocrit 42.6 % (41-53); Lymphocytes Absolute Auto 1400 /uL (1100-4500); Lymphocytes Percent Auto 22.4 % (25-40); Mean Corpuscular HGB Conc 32.9 % (30-36); Mean Corpuscular Hemoglobin 29.1 PG (26-34); Mean Corpuscular Volume 88.5 fL (80-100); Monocytes Absolute Auto 900 /uL (0-900); Monocytes Percent Auto 14.2 % (3-14); Neutrophils Absolute Auto 3800 /uL (1500-7000); Neutrophils Percent Auto 59.9 % (50-75); Platelet Count 204 X10^3/uL (150-400); Red Blood Cell Count 4.81 X10^6/uL (4.5-5.9); Red Cell Distribution Width 13.6 % (11.6-14.8); White Blood Cell Count 6.3 X10^3/uL (4.5-11.0)
[2022-06-14 12:11] LABS: HEMOLYSIS < 15 (0-50)
[2022-06-14 12:18] LABS: Alanine Aminotransferase 25 IU/L (<50); Albumin 3.9 g/dL (3.5-5.0); Albumin Globulin Ratio 1.4 (1.0-2.8); Alkaline Phosphatase 76 U/L (38-126); Aspartate Aminotransferase 24 IU/L (17-59); BUN Creatinine Ratio 22.5 (6-22); Bilirubin Total 0.5 mg/dL (0.2-1.3); Blood Urea Nitrogen 18 mg/dL (9-20); Calcium 8.8 mg/dL (8.4-10.2); Carbon Dioxide 29 mmol/L (22-32); Chloride 101 mmol/L (98-107); Cholesterol 152 mg/dL (140-199); Estimated Glomerular Filt Rate > 60 mL/min (>60); Globulin 2.8 g/dL (1.7-4.1); Glucose 100 mg/dL (80-110); HDL Cholesterol 66 mg/dL (40-60); LDL Cholesterol Calculated 69 mg/dL (<100); Potassium 4.3 mmol/L (3.4-5.1); Sodium 136 mmol/L (137-145); Total Protein 6.7 g/dL (6.3-8.2); Triglycerides 87 mg/dL (35-150)
[2022-06-20 02:41] LABS: Prostate Specific Antigen Scrn 4.13 ng/mL (0.1-4.0)
== END ==
PROVIDERS: PCP Family Medicine; Referring Provider Family Medicine; Visit Provider Family Medicine
DX: R97.20 Elevated prostate specific antigen [PSA] (principal); E78.00 Pure hypercholesterolemia, unspecified; I10 Essential (primary) hypertension
CPT/HCPCS: 36415; 80053; 80061; 84153; 85025; G0103

== ENCOUNTER → 2022-09-16 15:06 | Outpatient (CLI) | payer MEDICARE, OTHER, SELFPAY ==
--- NOTE | 2022-09-16 15:09 | DI.MRI.S_ITS ---
PROCEDURE: MR LUMBAR SPINE WO CON INDICATIONS: Spondylosis, lumbar region TECHNIQUE: Noncontrast sagittal T1 spin echo and T2 fast echo, sagittal STIR, and T2 fast spin echo through the lumbar spine. In cases with scoliosis, additional coronal T2 fast spin echo may be performed. COMPARISON: [facility], CR, XR LUMBAR SPINE 2 OR 3 VIEWS, 09/04/2022, 8:45. FINDINGS: Image quality: Excellent. Alignment and Curvature: L5 is a partially sacralized vertebra. Mild dextro curvature centered at L3. Bone Marrow: Marrow is of normal overall signal. No acute vertebral body compression fractures. Spinal Cord: Conus medullaris terminates at the L1 level. Visualized cord demonstrates normal signal and size. Paraspinous Soft Tissues: No paravertebral masses. T12-L1: Normal appearance. L1-L2: Chronic disc height loss. Disc bulge. Facet hypertrophy. There is a focal small left posterior disc protrusion or extrusion which obliterates the left L2 nerve root in the left lateral recess. There is moderate right foraminal narrowing. There is moderate to severe left foraminal narrowing with a degree of left foraminal L1 nerve root impingement. There is mild central canal stenosis. L2-L3: Diffuse disc plus osteophyte. Marked right facet hypertrophy and prominent left facet hypertrophy.. Severe canal stenosis. [id number] right foraminal narrowing. Moderate left foraminal narrowing with mild flattening deformity on the exiting left L2 nerve root. L3-L4: Mild posterior disc plus osteophyte. Exuberant bilateral facet hypertrophy. Mild canal stenosis. Moderate bilateral foraminal stenosis with flattening deformity on the exiting bilateral L3 nerve roots. L4-L5: Disc bulge. Anterolisthesis of L4 on L5. Exuberant facet hypertrophy. Mild central canal stenosis. Moderate bilateral foraminal narrowing with mild flattening deformity on the exiting L5-S1: L5 is partially sacralized. Bilateral facet hypertrophy. No canal stenosis or foraminal stenosis. IMPRESSION: 1. Please note that the current numbering system describes L5 as being partially sacralized. If surgery is contemplated in this patient, careful correlation for correct surgical level is required. 2. There is underlying multilevel facet arthropathy, quite impresses but L2-L3, L3-L4, and L4-L5. 3. At L1-L2, a focal small left posterior disc protrusion or extrusion obliterates the left L2 nerve root in the left lateral recess. There is mild central canal stenosis. 4. Canal stenosis is mild at L1-L2, severe at L2-L3, mild at L3-L4, and mild at L4-L5. 5. Multilevel foraminal narrowing as described above. Findings include moderate to severe left foraminal narrowing at L1-L2, moderate left foraminal narrowing at L2-L3, moderate bilateral foraminal narrowing at L3-L4, and moderate bilateral foraminal narrowing at L4-L5. Dictated by: Ede Elkins M.D. on 09/16/2022 at 21:58 Approved by: Ede lEkins M.D. on 09/16/2022 at 22:07
== END ==
PROVIDERS: PCP Family Medicine; Referring Provider Physical Medicine & Rehabilitation; Visit Provider Physical Medicine & Rehabilitation
DX: M47.816 Spondylosis without myelopathy or radiculopathy, lumbar region (principal); M51.26 Other intervertebral disc displacement, lumbar region; M48.061 Spinal stenosis, lumbar region without neurogenic claudication
CPT/HCPCS: 72148

== ENCOUNTER → 2024-12-14 07:43 | Outpatient (CLI) | payer MEDICARE, OTHER, SELFPAY ==
[2024-12-14 08:50] LABS: Add Manual Diff / Slide Review NO; Hematocrit 24.5 % (41-53); Hemoglobin 7.4 g/dL (13.5-17.5); Lymphocytes Absolute Auto 1200 /uL (1100-4500); Mean Corpuscular HGB Conc 30.2 % (30-36); Mean Corpuscular Hemoglobin 19.3 PG (26-34); Mean Corpuscular Volume 64.0 fL (80-100); Platelet Count 290 X10^3/uL (150-400)
[2024-12-14 09:16] LABS: Alanine Aminotransferase 17 IU/L (<50); Albumin 3.9 g/dL (3.5-5.0); Albumin Globulin Ratio 1.4 (1.0-2.8); Alkaline Phosphatase 72 U/L (38-126); Blood Urea Nitrogen 33 mg/dL (9-20); Calcium 9.0 mg/dL (8.4-10.2); Carbon Dioxide 21 mmol/L (22-32); Chloride 104 mmol/L (98-107); Cholesterol 119 mg/dL (140-199); Estimated Glomerular Filt Rate > 60 mL/min (>60); Globulin 2.8 g/dL (1.7-4.1); Glucose 97 mg/dL (70-99); HDL Cholesterol 52 mg/dL (40-60); HEMOLYSIS < 15 (0-50); Potassium 4.8 mmol/L (3.4-5.1); Sodium 133 mmol/L (137-145); Total Protein 6.7 g/dL (6.3-8.2); Triglycerides 78 mg/dL (35-150)
[2024-12-14 09:43] LABS: Anisocytosis 2+; Microcytosis 3+; Poikilocytosis 2+
== END ==
PROVIDERS: PCP Family Medicine; Referring Provider Family Medicine; Visit Provider Family Medicine
DX: E78.00 Pure hypercholesterolemia, unspecified (principal); Z79.899 Other long term (current) drug therapy
CPT/HCPCS: 36415; 80053; 80061; 85025

== ENCOUNTER → 2025-01-25 15:37 | Outpatient (CLI) | payer MEDICARE, OTHER, SELFPAY ==
[2025-01-25 17:20] LABS: Hematocrit 24.4 % (41-53); Hemoglobin 7.4 g/dL (13.5-17.5); Mean Corpuscular HGB Conc 30.1 % (30-36); Mean Corpuscular Hemoglobin 18.5 PG (26-34); Mean Corpuscular Volume 61.4 fL (80-100); Platelet Count 335 X10^3/uL (150-400)
[2025-01-25 17:40] LABS: Add Manual Diff / Slide Review YES
[2025-01-25 17:42] LABS: HEMOLYSIS < 15 (0-50); Iron 20 ug/dL (49-181)
[2025-01-25 17:55] LABS: Percent Iron Saturation 5 % (20-50); Total Iron Binding Capacity 433 ug/dL (261-462); Transferrin 362 mg/dL (206-381)
[2025-01-25 19:52] LABS: Eosinophils Percent Manual 3.0 % (2-4); Lymphocytes Percent Manual 15.0 % (25-45); Monocytes Percent Manual 7.0 % (2-11); Neutrophils Absolute Manual 5850 /uL (3000-5900); Segmented Neutrophils Percent 75.0 % (38-70); Total Cells Counted 100
[2025-01-25 19:53] LABS: Hypochromasia 2+; Microcytosis 3+; Schistocytes 1+
== END ==
PROVIDERS: PCP Family Medicine; Referring Provider Family Medicine; Visit Provider Family Medicine
DX: D64.9 Anemia, unspecified (principal)
CPT/HCPCS: 36415; 83540; 83550; 85007; 85025

== ENCOUNTER → 2025-03-01 10:45 | Outpatient (CLI) | payer MEDICARE, OTHER, SELFPAY ==
[2025-03-01 11:18] LABS: Add Manual Diff / Slide Review NO; Hematocrit 26.6 % (41-53); Hemoglobin 8.0 g/dL (13.5-17.5); Lymphocytes Absolute Auto 1000 /uL (1100-4500); Mean Corpuscular HGB Conc 30.1 % (30-36); Mean Corpuscular Hemoglobin 18.1 PG (26-34); Mean Corpuscular Volume 60.0 fL (80-100); Platelet Count 312 X10^3/uL (150-400)
[2025-03-01 11:48] LABS: Hypochromasia 1+; Microcytosis 3+
[2025-03-01 12:19] LABS: HEMOLYSIS < 15 (0-50); Iron 25 ug/dL (49-181)
[2025-03-01 12:32] LABS: Percent Iron Saturation 6 % (20-50); Total Iron Binding Capacity 451 ug/dL (261-462); Transferrin 382 mg/dL (206-381)
[2025-03-01 12:57] LABS: Ferritin 5 ng/mL (18-464)
== END ==
PROVIDERS: PCP Family Medicine; Referring Provider Physician Assistant; Visit Provider Physician Assistant
DX: D64.9 Anemia, unspecified (principal)
CPT/HCPCS: 36415; 82728; 83540; 83550; 85025